=== PATIENT | male | born 1965 | race Caucasian/White ===

== ENCOUNTER 2024-05-23 09:34 | Emergency (ER) | payer SELFPAY ==
[2024-05-23 09:51] VITALS: BP 147/77; PULSE 73; RESP 17; TEMP 36.1; O2SAT 97; BMI 41.6
--- NOTE | 2024-05-23 09:54 | ED.UPPEXIN ---
HPI - Extremity Injury (Upper) General Chief Complaint: Extremity Injury, Upper Stated Complaint: hand inj at work Time Seen by Provider: 05/23/24 09:47 Source: patient Mode of arrival: ambulatory Limitations: no limitations History of Present Illness HPI narrative: Patient is a 59-year-old male who presents emergency department for evaluation of a right hand injury. He is right-hand dominant. 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 He has trialed multiple anti-inflammatories, hydrocodone without improvement in his pain. He states he would like an x-ray to know what is going on. Related Data Previous Rx's ?Medication ?Instructions ?Recorded syringe with needle, safety 3 mL #4 ea 10/28/20 25 gauge x 1 (BD Integra Syringe) syringe with needle, safety 3 mL See Rx Instructions .Route QWEEK 10/28/20 25 gauge x 1 (BD Integra Syringe) #4 ea testosterone cypionate 200 mg/mL 200 mg IM QWEEK 28 days #4 mL 12/21/20 intramuscular oil Allergies Allergy/AdvReac Type Severity Reaction Status Date / Time penicillin V Allergy Unknown Unknown Verified 05/23/24 09:53 trazodone Allergy Unknown Unknown Verified 05/23/24 09:53 Review of Systems Review of Systems: Yes all other systems are reviewed and are negative [facility] Past Medical History Attestation statement: The following information was validated with the patient. Source: old records reviewed Social History Social History Advance Directives: No Advance Directives Information Provided: No Do you have a plan to hurt others: No Plan Physical Exam Vital Signs: Vital Signs: Last Vital Signs Temp 96.9 F 05/23/24 09:51 Pulse 73 05/23/24 09:51 Resp 17 05/23/24 09:51 BP 147/77 H 05/23/24 09:51 Pulse Ox 97 05/23/24 09:51 O2 Del Method Room Air 05/23/24 09:51 BMI result Body Mass Index 41.6 Appearance: Alert.?Oriented to person, place and time. No acute distress.?Normal affect.?? Neck: Normal inspection.? Neck supple.?? CVS: Heart sounds normal. Normal heart rate and rhythm.? Pulses normal.?? Respiratory: No respiratory distress.? Lung sounds clear to auscultation bilaterally?? Skin: Skin warm and dry.? Normal skin color.? Extremities: full range of motion to right hand and digits. No obvious deformity. No erythema. No warmth. Neuro: Moves all extremities spontaneously. Sensation intact bilaterally. Ambulates with normal steady gait. Course Reevaluation(s) Reevaluation #1: patient became very upset at this provider, I attempted to explain to patient differential diagnoses for his hand injury, discussed with him that I have a low suspicion that this is any acute fracture or dislocation, he may have a component of degenerative changes but most likely tendonitis based on his description. he is taken reportedly various medications including NSAIDs and hydrocodone without improvement. At 1 point he was stating I would give me oxycodone or dull I do not care I am not here for pain medication. I did advise him that we can have a discussion about analgesics however this was likely not going to be resolution for the problem but rather only symptomatic treatment, he then began yelling I know I need a fucking referral for a specialist just get on with it and stating You know what get fucked, I do not have to deal with this bullshit . patient walked out of the emergency department treatment area to triage where he again began yelling and was quite upset, security requested for assistance. Time: 09:58 Medical Decision Making Medical Decision Making MDM Narrative: patient is a 59-year-old male who presents to the emergency department for evaluation of pain to the base of the right 2nd digit / MCP with onset approximately 2-3 weeks ago after an injury. Full range of motion is present. Requesting an x-ray, or suspicion acute fracture dislocation degenerative changes given his work background, suspect there is less likely to be any retained foreign body however in the mechanism of injury there is some possibility. Differential Diagnosis Differential Diagnoses: The differential diagnosis associated with the presentation includes ( See course narrative for further detail) Prescription Management I considered prescription management with: Pain Medication ( See course narrative) Discharge Plan Discharge Clinical Impression: Tendinitis of finger of right hand Patient Disposition: Left W/O Completing Treatment Prescriptions: No Action (DME) BD Integra Syringe 3 mL 25 gauge x 1 syringe See Rx Instructions .MEDSUPPLY Qty: 4 6RF Rx Instructions: As directed syringe with needle, safety [BD Integra Syringe] 3 mL 25 gauge x 1 syringe See Rx Instructions .ROUTE QWEEK Qty: 4 6RF Rx Instructions: every week; testosterone cypionate 200 mg/mL oil 200 mg IM QWEEK 28 Days Qty: 4 5RF Discharge Date/Time: 05/23/24 10:13
--- NOTE | 2024-05-23 10:12 | PC.NURSE ---
Patient verbally abusive to staff and walked out stating that he didn't have to take our childish behavior.
== END 2024-05-23 10:13 | disposition left against medical advice (07) ==
PROVIDERS: Emergency Provider Emergency Medicine; PCP Internal Medicine
DX: S69.91XA Unspecified injury of right wrist, hand and finger(s), initial encounter (principal); M65.241 Calcific tendinitis, right hand; Y29.XXXA Contact with blunt object, undetermined intent, initial encounter; Y93.9 Activity, unspecified; Y92.9 Unspecified place or not applicable; Y99.0 Civilian activity done for income or pay
CPT/HCPCS: 99281; 99282

== ENCOUNTER 2025-03-01 13:13 | Emergency (ER) | payer OTHER, SELFPAY ==
--- NOTE | ~2025-03-01 | XR_ITS ---
CLINICAL HISTORY: pain, concern for OSTEO Radiographs of the left hand, 3 views, 4 images Comparison: None Findings: No cortical destruction or periostitis to indicate osteomyelitis. No acute fracture or dislocation. Well corticated ossific fragment of the distal ulna measuring 1.9 cm, chronic. Associated large amount of cystic change in the distal ulna, degenerative. Degenerative change is otherwise mild. Bone mineralization is normal. Soft tissue swelling. Impression: No radiographic evidence of osteomyelitis. Follow up if symptoms persist or worsen. This document has been electronically signed by: Gilda Cameron MD on 03/01/2025 14:33:25
[2025-03-01 13:21] VITALS: BP 163/71; PULSE 81; RESP 16; TEMP 36.1; O2SAT 98; BMI 38.1
--- NOTE | 2025-03-01 13:23 | ED.GENADULT ---
HPI - General Adult General Chief complaint: General Medical Stated complaint: L hand lac Time Seen by Provider: 03/01/25 15:45 Source: patient and RN notes reviewed Limitations: no limitations History of Present Illness HPI narrative: 59-year-old male presents for evaluation of a poorly healing wound to the palm of his left hand. Patient states that approximate 1 month ago the patient had hand surgery from a surgeon through [facility] to remove lumps . Since that time, the patient has been cleaning it regularly and using bacitracin. He also underwent physical therapy however discontinued because he felt as though the open up during PT. patient states he had a follow up visit with his surgeon on February 18. The patient has at the emergency department having increased pain as well as reporting poor healing right-hand dominant. Denies any fevers chills nausea or vomiting. Denies any repeat trauma. He does use his hands quite regularly. No history diabetes. He also reports numbness and tingling throughout his entire left hand. Related Data Previous Rx's ?Medication ?Instructions ?Recorded syringe with needle, safety 3 mL #4 ea 10/28/20 25 gauge x 1 (BD Integra Syringe) syringe with needle, safety 3 mL See Rx Instructions .Route QWEEK 10/28/20 25 gauge x 1 (BD Integra Syringe) #4 ea testosterone cypionate 200 mg/mL 200 mg IM QWEEK 28 days #4 mL 12/21/20 intramuscular oil doxycycline monohydrate 100 mg 100 mg PO BID 10 days #20 caps 03/01/25 capsule mupirocin 2 % topical ointment 1 appl topical BID #22 grams 03/01/25 oxycodone 5 mg tablet 5 mg PO Q8H PRN severe pain (scale 03/01/25 score 7-10) #8 tabs Allergies Allergy/AdvReac Type Severity Reaction Status Date / Time penicillin V Allergy Unknown Unknown Verified 03/01/25 13:24 trazodone Allergy Unknown Unknown Verified 03/01/25 13:24 Review of Systems Constitutional: Constitutional: Denies fever(s) Musculoskeletal: Musculoskeletal: Reports arthralgias and Reports numbness Neurologic: Reports numbness PMFSH Past Medical History PMFSH Narrative: hard of hearing Social History Social History Smoked in Last 30 Days: Yes Use of substances other than those prescribed or required for medical reasons: Yes Substance Use Type: Marijuana Substance Use Frequency: Daily Advance Directives: No Advance Directives Information Provided: Yes Do you have a plan to hurt others: No Plan Physical Exam ED Vital Signs: Vital Signs - 24 hr 03/01/25 13:21 03/01/25 15:58 03/01/25 17:14 Temperature 97.0 F 97.5 F 97.5 F Pulse Rate 81 72 72 Respiratory Rate 16 16 16 Blood Pressure 163/71 H 139/74 139/74 Pulse Oximetry 98 97 97 Oxygen Delivery Method Room Air Room Air Room Air BMI result Body Mass Index 38.1 Const General: cooperative 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 Serous drainage but no capillary refills less than 2 seconds. Motor and sensation is intact pronation and supination is abduction adduction is intact but difficult. Radial pulses are +2 and equal bilaterally. Course Course Course Narrative: RME performed by Anna Becerra PA-C. Patient is a 59 year old assigned male at presenting to the emergency department with left hand pain / irritation. Patient states a month ago he had hand surgery on his left hand for lump removal and he doesn't believe it is healing well. Detailed physical exam and review of systems are deferred to the assistant teacher primary. Labs and imaging ordered. Patient placed back in the waiting room pending room availability and results. Reevaluation(s) Reevaluation #1: 5:00 p.m. I have had extensive discussion with the patient, reviewing labs and imaging findings. Slight elevation in ESR and CRP but there is no evidence of osteomyelitis on x-ray. Patient will add Mupirocin ointment along with antibiotics, doxycycline. First dose given now in the emergency department. Referral has been provided to wound care for further evaluation and management. I have also discussed with the patient to follow up with his surgeon for continued monitoring. I reviewed all discharge instructions. Patient expressed understanding and has no further questions at this time. Medications Administered Discontinued Medications Generic Name Dose Route Start Last Admin Trade Name Freq PRN Reason Stop Dose Admin Doxycycline Monohydrate 100 mg 03/01/25 16:50 03/01/25 17:03 Doxycycline Monohydrate 100 Mg Capsule PO 03/01/25 16:51 100 mg ONCE ONE Administration Medical Decision Making Medical Decision Making MDM Narrative: 59-year-old male with poorly healing wound of the left hand. Labs today demonstrate slight elevation in ESR and CRP. X-ray without evidence of osteomyelitis. Given the patient is having extended delay in healing, and soft tissue swelling, I feel is reasonable at this time to place the patient on antibiotics. First dose of doxycycline will be given now. In addition, Bactroban ointment and short course of analgesia. Confirmed prescription monitoring program last prescription consistent with the patient's procedure. In addition, I feel that this patient could benefit from wound care referral as well as follow up with his surgeon. Extensive discussion with the patient regarding all discharge instructions and follow up. Patient expresses understanding and has no further questions at this time. discussed with Dr. Newman who agrees with plan. Differential Diagnosis Differential Diagnoses: The differential diagnosis associated with the presentation includes Osteomyelitis Cellulitis Abscess Chronic wound tenosynovitis, no evidence of Lab Data [facility] Lab Attestation statement: I reviewed the patient's lab results. 03/01/25 13:58 03/01/25 13:58 Labs: Lab Results 03/01/25 Range/Units 13:58 WBC 9.1 (4.8-10.8) X10*3/uL RBC 5.35 (4.60-5.80) X10*6/uL Hgb 15.5 (14.0-18.0) g/dl Hct 44.2 (42.0-52.0) % MCV 82.6 (80.0-98.0) fL MCH 29.0 (27.0-33.0) pg MCHC 35.1 (31.0-36.0) g/dl RDW 13.4 (11.0-16.0) % Plt Count 245 (160-400) X10*3/uL MPV 10.1 (9.4-12.4) fL Immature Gran % (Auto) 0.3 (0.0-0.4) % Neut % (Auto) 53.6 (45-73) % Lymph % (Auto) 31.4 (20-40) % [place] % (Auto) 9.9 (2-11) % Eos % (Auto) 4.0 (0-4) % Baso % (Auto) 0.8 (0-2) % Lymph # (Auto) 2.9 (1.2-4.9) X10*3/uL [place] # (Auto) 0.9 (0.1-1.2) X10*3/uL Eos # (Auto) 0.4 (0.0-0.4) X10*3/uL Baso # (Auto) 0.1 (0.0-0.2) X10*3/uL Abs Immat Gran (auto) 0.03 (0.00-0.03) X10*3/uL Absolute Neuts (auto) 4.9 (2.0-8.3) x10*3/uL Absolute Nucleated RBC 0.000 (0.0-0.012) X10*3/uL Nucleated RBC % (auto) 0.0 (0.0-0.2) /100WBC ESR 23 H (0-15) MM/HR Sodium 139 (135-145) mmol/L Potassium 4.3 (3.3-5.1) mmol/L Chloride 109 H (96-108) mmol/L Carbon Dioxide 23 (22-29) mmol/L Anion Gap 11 L (12-20) BUN 17 H (9-16) mg/dL Creatinine 0.90 (0.5-1.4) mg/dL Estim Creat Clear Calc 122.0 Estimated GFR > 60 Random Glucose 114 (60-115) mg/dL Calcium 9.3 (8.4-10.2) mg/dL Total Bilirubin 0.3 (0.0-1.0) mg/dL AST 18 (5-37) U/L ALT 26 (0-40) U/L Alkaline Phosphatase 82 (39-117) U/L C-Reactive Protein 0.98 H (< or = 0.50) mg/dL Total Protein 7.3 (6.5-8.0) g/dL Albumin 4.0 (3.5-5.0) g/dL Radiology Impression Discussion of test interpretation with radiology: I have reviewed the radiologist's reading. Radiologist Impression: [address] [address] XRay Report Signed Patient: Cj Smith MR#: [id number] : 1965 Acct:[id number] Age/Sex: 59 / M ADM Date: 03/01/25 Loc: HO.ED Attending Dr: Ordering Physician: Anna Becerra Date of Service: 03/01/25 Procedure(s): XR hand LT min 3V Accession Number(s): [id number] cc: Anna Becerra; KERRIE REDDY MD~ CLINICAL HISTORY: pain, concern for OSTEO Radiographs of the left hand, 3 views, 4 images Comparison: None Findings: No cortical destruction or periostitis to indicate osteomyelitis. No acute fracture or dislocation. Well corticated ossific fragment of the distal ulna measuring 1.9 cm, chronic. Associated large amount of cystic change in the distal ulna, degenerative. Degenerative change is otherwise mild. Bone mineralization is normal. Soft tissue swelling. Impression: No radiographic evidence of osteomyelitis. Follow up if symptoms persist or worsen. This document has been electronically signed by: Gilda Cameron MD on 03/01/2025 14:33:25 Dictated By: Gilda Alvares MD Signed By: <Electronically signed by Gilda Alvares MD in OV> 03/01/25 1434 DD/ 1433 TD/TT: 03/01/25 1433 Brim Pouncer: Prescription Management I considered prescription management with: Pain Medication and Antibiotic Discharge Plan Discharge Clinical Impression: Cellulitis of hand, left Patient Disposition: Home, Self-Care Instructions: Cellulitis (ED) Additional Instructions: As discussed, continue to keep the hand clean and dry. Continue to use warm water and antibacterial soap. Pat dry and bandage. Doxycycline as directed. Finish all antibiotics. Mupirocin ointment to the affected area. Oxycodone as directed for severe pain. do not drive, operate heavy machinery, drink alcohol while taking this medication as it may make you drowsy. Follow up with your hand specialist. Call tomorrow to schedule follow up appointment. A wound care referral has been submitted for Dr. Crowder located at [facility]. [place] call tomorrow to schedule a follow up appointment [phone]. Alternatively, you may call to schedule follow-up at the [facility] located at [address] [place] [address], Watch for any worsening of symptoms, severe pain, fevers, redness, discharge or any other concern return immediately to the emergency department. Follow-up with your primary care provider. Call this week to schedule a follow-up appointment. Return to the emergency department if you have any worsening of symptoms, or any concerns. Get well soon! Prescriptions: New mupirocin 2 % ointment 1 appl topical BID Qty: 22 0RF doxycycline monohydrate 100 mg capsule 100 mg PO BID 10 Days Qty: 20 0RF oxycodone 5 mg tablet 5 mg PO Q8H PRN (Reason: severe pain (scale score 7-10)) Qty: 8 0RF Rx Instructions: Partial Fill upon patient request. No Action (DME) BD Integra Syringe 3 mL 25 gauge x 1 syringe See Rx Instructions .MEDSUPPLY Qty: 4 6RF Rx Instructions: As directed syringe with needle, safety [BD Integra Syringe] 3 mL 25 gauge x 1 syringe See Rx Instructions .ROUTE QWEEK Qty: 4 6RF Rx Instructions: every week; testosterone cypionate 200 mg/mL oil 200 mg IM QWEEK 28 Days Qty: 4 5RF Referrals: Sabas Crowder MD [Physician] - 1 week (Left hand post op wound) Interventions: ED Discharge Assessment Last Done: 03/01/25 17:14 Discharge Date/Time: 03/01/25 17:15 Print Language: Portuguese
[2025-03-01 14:02] LABS: MANUAL DIFF FLAG NO
[2025-03-01 14:06] LABS: Basophils Absolute Auto 0.1 X10*3/uL (0.0-0.2); Basophils Percent Auto 0.8 % (0-2); Eosinophils Absolute Auto 0.4 X10*3/uL (0.0-0.4); Hematocrit 44.2 % (42.0-52.0); Hemoglobin 15.5 g/dl (14.0-18.0); Imm Gran Abs Auto 0.03 X10*3/uL (0.00-0.03); Imm Gran Pct Auto 0.3 % (0.0-0.4); Lymphocytes Absolute Auto 2.9 X10*3/uL (1.2-4.9); Lymphocytes Percent Auto 31.4 % (20-40); Mean Corpuscular HGB Conc 35.1 g/dl (31.0-36.0); Mean Corpuscular Volume 82.6 fL (80.0-98.0); Mean Platelet Volume 10.1 fL (9.4-12.4); Monocytes Absolute Auto 0.9 X10*3/uL (0.1-1.2); Monocytes Percent Auto 9.9 % (2-11); Neutrophils Absolute Auto 4.9 x10*3/uL (2.0-8.3); Neutrophils Percent Auto 53.6 % (45-73); Platelet Count 245 X10*3/uL (160-400); Red Blood Count 5.35 X10*6/uL (4.60-5.80); Red Cell Distribution Width 13.4 % (11.0-16.0); White Blood Count 9.1 X10*3/uL (4.8-10.8)
[2025-03-01 14:17] LABS: Alanine Aminotransferase 26 U/L (0-40); Alkaline Phosphatase 82 U/L (39-117); Anion Gap 11 (12-20); Aspartate Amino Transferase 18 U/L (5-37); Bilirubin Total 0.3 mg/dL (0.0-1.0); Blood Urea Nitrogen 17 mg/dL (9-16); C Reactive Protein 0.98 mg/dL (< or = 0.50); Calcium 9.3 mg/dL (8.4-10.2); Carbon Dioxide 23 mmol/L (22-29); Chloride 109 mmol/L (96-108); Estimated Glomerular Filt Rate > 60; Glucose Random 114 mg/dL (60-115); Potassium 4.3 mmol/L (3.3-5.1); Sodium 139 mmol/L (135-145); Total Protein 7.3 g/dL (6.5-8.0)
[2025-03-01 14:51] LABS: Erythrocyte Sedimentation Rate 23 MM/HR (0-15)
[2025-03-01 15:58] VITALS: BP 139/74; PULSE 72; RESP 16; TEMP 36.4; O2SAT 97
--- OUTSIDE RECORDS SUMMARY | 2025-03-01 15:59 | XMS_ITS | Clinical Summary ---
Author Organization [facility] Address [id number] [place] [id number] Care Team Providers Care Meter Mechanic Name Role Phone Unavailable Primary Care Provider Unavailabl e Medical History Medical History Date Comments GERD (gastroesophageal reflux disease) DX:GERD (gastroesophageal reflux disease) Tobacco abuse 09/30/2013 DX:Tobacco abuse Priapism 09/30/2013 DX:Priapism; COM MENT: Due to trazadone Arthritis 09/30/2013 DX:Arthritis Bipolar affective (CMS/HCC) 09/30/2013 DX:B ipolar affective (HCC) OA (osteoarthritis) of knee 09/30/2013 DX:O A (osteoarthritis) of knee Lumbago 09/30/2013 DX:Lumbago PTSD (post-traumatic stress disorder) 09/30/2013 DX:PTSD (post-traumatic stress disorder) Fatty liver 12/09/2013 DX:Fatty liver Family History Medical History Relation Name Comments Other: Other Father Other: Other Mother no history know n Relation Name Status Comments Father Mother Social History Tobacco Use Types Packs/Day Years Used Date Smoking Tobacco: Every Day Smokeless Tobacco: Never Alcohol Use Standard Drinks/Week Comments Not Asked 0 (1 standard drink = 0.6 oz pur e alcohol) Sex and Gender Information Value Date Recorded Sex Assigned at Not on file Legal Sex Male 8:57 PM EST Gender Identity Not on file Sexual Orientation Not on file Obstetrics History Plan of Treatment Health Maintenance Due Date Last Done Comments DTaP,Tdap,and Td Vaccines (1 - Tdap) 1984 Hepatitis A Vaccines (1 of 2 - Risk 2-dose series) 1984 Hepatitis B Vaccines (1 of 3 - 19+ 3-dose series) 1984 Pneumococcal Vaccine: 50+ Ye ars (1 of 2 - PCV) 1984 Pneumococcal Vaccine: Pediat rics (0 to 5 Years) and At-Risk Patients (6 to 64 Years) (1 of 2 - PCV) 1984 Zoster Vaccines (1 of 2) 2015 Cholesterol Screening (Lipid Panel) 12/25/2023 Colorectal Cancer Screening: Colonoscopy 12/25/2023 Depression Screening 12/25/2023 HIV Screening 12/25/2023 Hepatitis C Screening 12/25/2023 Social Influencers of Health Screening 12/25/2023 COVID-19 Vaccine ( - 2023-2 5 season) 2024 Influenza Vaccine (#1) 2024 RSV Immunization Adult Patie nts (1 - 1-dose 75+ series) 2040 HIB Vaccines Aged Out No longer eligi ble based on patient's age to complete this topic HPV Vaccines Aged Out No longer eligi ble based on patient's age to complete this topic IPV Vaccines Aged Out No longer eligi ble based on patient's age to complete this topic MMR Vaccines Aged Out No longer eligi ble based on patient's age to complete this topic Meningococcal ACWY Vaccine Aged Out N o longer eligible based on patient's age to complete this topic Meningococcal B Vacine Aged Out No lo nger eligible based on patient's age to complete this topic RSV Immunization Patients Un debi 20 months Aged Out No longer eligible b ased on patient's age to complete this topic Varicella Vaccines Aged Out No longer eligible based on patient's age to complete this topic
[2025-03-01] MEDS: Doxycycline Monohydrate 100 MG CAPSULE PO (17:03)
[2025-03-01 17:14] VITALS: BP 139/74; PULSE 72; RESP 16; TEMP 36.4; O2SAT 97
== END 2025-03-01 17:15 | disposition home or self-care (01) ==
PROVIDERS: Physician Assistant Medical; Emergency Provider Internal Medicine; PCP Internal Medicine
DX: L03.114 Cellulitis of left upper limb (principal); M79.642 Pain in left hand
CPT/HCPCS: 36415; 73130; 80053; 85025; 85652; 86140; 99283; 99284

== ENCOUNTER → 2025-03-01 13:23 | Outpatient (BNV) | payer MEDICAID, SELFPAY | PROVIDERS: PCP Internal Medicine; Visit Provider Radiology Diagnostic Radiology | DX: M25.542 Pain in joints of left hand (principal) | CPT/HCPCS: 73130 ==

== ENCOUNTER 2025-03-17 08:01 | Outpatient (RCR) | payer OTHER, SELFPAY | END 2025-03-17 16:25 | disposition home or self-care (01) | LOC: HO.WCC 08:01 | PROVIDERS: PCP Internal Medicine | DX: T81.31XA Disruption of external operation (surgical) wound, not elsewhere classified, initial encounter (principal); L24.89 Irritant contact dermatitis due to other agents; L53.9 Erythematous condition, unspecified; I73.9 Peripheral vascular disease, unspecified; F17.210 Nicotine dependence, cigarettes, uncomplicated; F12.90 Cannabis use, unspecified, uncomplicated | CPT/HCPCS: 97597; 99212 ==

== ENCOUNTER 2025-04-07 17:02 | Emergency (ER) | payer OTHER, SELFPAY ==
[2025-04-07 17:05] VITALS: BP 131/65; PULSE 71; RESP 18; TEMP 36.7; O2SAT 97
[2025-04-07 17:47] VITALS: BP 131/65; PULSE 71; RESP 18; TEMP 36.7; O2SAT 97; BMI 39.3
--- NOTE | 2025-04-07 17:47 | ED_ITS ---
HPI - General Adult General Chief complaint: Allergic Reaction Stated complaint: eye swollen itchy irritated Time Seen by Provider: 04/07/25 17:56 Source: patient, family (ex-), RN notes reviewed and old records reviewed Mode of arrival: ambulatory Limitations: no limitations History of Present Illness ED Provider: Fátima HPI narrative: Patient is a 59-year-old male presenting to the emergency department with complaint of pruritic red rash around eyes, spreading to forehead. States that he applied some body lotion from [employer] that his ex- gave to him and thinks he accidentally touched his eyes afterwards. Feels this is what has caused his symptoms. Has taken Benadryl with little change. Denies any shortness of breath or difficulty breathing. Denies any abdominal pain, nausea, vomiting, diarrhea. Denies any changes in vision or discharge from eyes. Lotion noted to contain Martinez butter and other natural ingredients. MD complaint: Rash Onset (ago): day(s) Location: face and eyes Related Data Previous Rx's ?Medication ?Instructions ?Recorded syringe with needle, safety 3 mL #4 ea 10/28/20 25 gauge x 1 (BD Integra Syringe) syringe with needle, safety 3 mL See Rx Instructions .Route QWEEK 10/28/20 25 gauge x 1 (BD Integra Syringe) #4 ea testosterone cypionate 200 mg/mL 200 mg IM QWEEK 28 days #4 mL 12/21/20 intramuscular oil doxycycline monohydrate 100 mg 100 mg PO BID 10 days #20 caps 03/01/25 capsule mupirocin 2 % topical ointment 1 appl topical BID #22 grams 03/01/25 oxycodone 5 mg tablet 5 mg PO Q8H PRN severe pain (scale 03/01/25 score 7-10) #8 tabs cetirizine 10 mg tablet (All Day 10 mg PO BID 7 days #14 tabs 04/07/25 Allergy (cetirizine)) famotidine 20 mg tablet 20 mg PO DAILY #7 tabs 04/07/25 prednisone 20 mg tablet See Rx Instructions .Route 04/07/25 .COMPLEX #12 tabs Allergies Allergy/AdvReac Type Severity Reaction Status Date / Time penicillin V Allergy Unknown Unknown Verified 04/07/25 17:48 trazodone Allergy Unknown Unknown Verified 04/07/25 17:48 Review of Systems 2 Review of Systems: As per HPI. Yes all other systems are reviewed and are negative Constitutional: Constitutional: Reports as per HPI [facility] Social History Social History Substance Use Type: Marijuana Advance Directives: No Advance Directives Information Provided: No Physical Exam ED Vital Signs: Vital Signs - 24 hr 04/07/25 17:47 Temperature 98.0 F Pulse Rate 71 Respiratory Rate 18 Blood Pressure 131/65 Pulse Oximetry 97 Oxygen Delivery Method Room Air BMI result Body Mass Index 39.3 Vital signs have been reviewed and appear to be correct. Blood pressure normal. Heart rate normal. Respiratory rate normal. Temperature normal. Oxygen saturation normal. Const General: cooperative, healthy appearing and no acute distress Orientation/consciousness: oriented to person, oriented to place, oriented to time and patient oriented x3 Limitations: no limitations HENMT Head: Yes normocephalic and Yes atraumatic Head images: 2 1. Erythematous macules Ears: external ears normal General nose exam: Normal external nose present Face and sinus: Yes face symmetric Mouth: Normal oral and palatal mucosa present, lip normal, tongue normal, oropharynx normal, moist mucous membranes, no audible dysphonia, no drooling and no trismus Throat: Yes posterior oropharynx normal, Yes uvula midline and No uvular edema Eyes Visual Berg: normal visual berg by confrontation Alignment and Position: alignment normal and position normal Periorbital: periorbital findings abnormal bilateral periorbital swelling and periorbital erythema Conjunctivae: conjunctivae normal Sclerae: sclerae normal Pupils: Equal, round and reactive pupils present EOM: EOMs intact bilaterally Neck Neck: Yes normal visual inspection and Yes supple Resp Effort & Inspection: normal respiratory effort and able to speak in complete sentences Auscultation: clear to auscultation bilaterally Cardio Rate: regular rate Rhythm: regular rhythm Heart sounds: S1 normal heart sound present and S2 normal heart sound present GI Palpation (GI): Soft to palpation and nontender Auscultation: normoactive bowel sounds General: Yes no CVA tenderness Back/Spine/Pelvis Back: no CVA tenderness Skin General skin exam: elasticity normal and turgor normal Neuro General: oriented to person, oriented to place, oriented to time, patient oriented x3, moves all extremities, no focal motor deficits and CN's II-XI intact bilaterally Cranial nerves: Yes Equal, round and reactive pupils present Cognition (Neuro): normal cognition Extrem General: Yes full ROM, Yes no pedal edema and Yes no calf tenderness Psych Mental Status: mental status grossly normal Affect: normal affect Thought process: Normal thought process present Medical Decision Making Medical Decision Making [facility] Narrative: Patient is a 59-year-old male presenting to the emergency department with complaint of pruritic red rash around eyes, spreading to forehead. On exam patient is awake, A+Ox3, VS WNL, afebrile, normal neurological exam without focal deficits, physical exam findings as above. Given reported symptoms and physical exam findings, initial differential includes but is not limited to contact dermatitis, atopic dermatitis, allergic reaction. Lungs clear, no uvula edema, angioedema, do not suspect anaphylaxis. Will send prescriptions for tapering dose of prednisone, cetirizine and famotidine. Patient states he already has a analysis manager, advised him to follow up there if symptoms do not improve. Return precautions discussed. Patient verbalized understanding of and agreement with plan. Differential Diagnosis Differential Diagnoses: The differential diagnosis associated with the presentation includes As per [facility] Admission/Observation Consideration of admission/observation: Escalation of care including admission/observation considered Patient would have been admitted to the hospital had their work up had any findings where hospital admission was appropriate and their clinical presentation warranted hospital admission. External Record Review External record reviewed: Inpatient record, Office record and Outpatient record Prescription Management I considered prescription management with: Other Discharge Plan Discharge Clinical Impression: Rash and nonspecific skin eruption Patient Disposition: Home, Self-Care Instructions: Contact Dermatitis (DC), Acute Rash (ED) Additional Instructions: You were evaluated in the emergency department today for a rash. Your evaluation did not reveal evidence of conditions requiring emergent medical treatment. You are being prescribed a tapering dose of a steroid called prednisone to decrease inflammation. We are prescribing cetirizine (Zyrtec) which is an antihistamine. You are also being prescribed famotidine (Pepcid) which is a different type of antihistamine. You can apply a thick unscented lotion to the affected areas such as Eucerine or Vanicream several times daily. Follow up with your primary care provider this week. If your symptoms do not improve, follow up with a analysis manager. Return to the emergency department if you develop difficulty breathing or shortness of breath, swelling to lips, tongue, fever, rash inside your mouth or to your palms/soles or any other concerning symptoms. Prescriptions: New prednisone 20 mg tablet See Rx Instructions .ROUTE .COMPLEX Qty: 12 0RF Rx Instructions: Take 60 mg (3 tabs) times 2 days, then 40 mg (2 tabs) x2 days, then 20 mg (1 tab) x2 days cetirizine [All Day Allergy (cetirizine)] 10 mg tablet 10 mg PO BID 7 Days Qty: 14 0RF famotidine 20 mg tablet 20 mg PO DAILY Qty: 7 0RF No Action (DME) BD Integra Syringe 3 mL 25 gauge x 1 syringe See Rx Instructions .MEDSUPPLY Qty: 4 6RF Rx Instructions: As directed syringe with needle, safety [BD Integra Syringe] 3 mL 25 gauge x 1 syringe See Rx Instructions .ROUTE QWEEK Qty: 4 6RF Rx Instructions: every week; testosterone cypionate 200 mg/mL oil 200 mg IM QWEEK 28 Days Qty: 4 5RF mupirocin 2 % ointment 1 appl topical BID Qty: 22 0RF doxycycline monohydrate 100 mg capsule 100 mg PO BID 10 Days Qty: 20 0RF oxycodone 5 mg tablet 5 mg PO Q8H PRN (Reason: severe pain (scale score 7-10)) Qty: 8 0RF Rx Instructions: Partial Fill upon patient request. Referrals: [facility] [Provider Group] [facility] [Provider Group] Print Language: Malay
== END 2025-04-07 18:49 | disposition home or self-care (01) ==
PROVIDERS: Emergency Provider Emergency Medicine; PCP Internal Medicine
DX: R21 Rash and other nonspecific skin eruption (principal)
CPT/HCPCS: 99282; 99283